=== PATIENT | male | born 1985 | race Caucasian/White ===

== ENCOUNTER 2017-01-10 21:56 | Emergency (ER) | payer SELFPAY ==
[~2017-01-10] VITALS: Ht 182.9 cm; Wt 111.1 kg
[~2017-01-10 21:56] MED LIST: ALBU17AE23 INH; ALBU8.5H2 IH; DOXY100C2 PO; OSLT75C PO; PRD20T PO
[2017-01-10] MEDS ORDERED: RX-ALBUTEROL INHALER (PROAIR) 8 GM IH PRN (22:15)
[2017-01-10] MEDS ORDERED: predniSONE 20 MG TAB PO ONE (22:15)
[2017-01-10] MEDS ORDERED: RT-ALBUTEROL SULF 2.5 MG/3 ML PRE-MIX VIAL INH STA (22:15)
--- NOTE | 2017-01-10 22:29 | ED Respiratory ---
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 NO OTHER C/O VOICED Source: patient Exam Limitations: no limitations History of Present Illness Time seen by provider: 22:10 Initial Comments Here with report of asthma attack this afternoon. States that he had gone out last night and smoked a few cigarettes and he thinks this may have exacerbated his asthma. EMS notes a fever. They did give albuterol and Atrovent which did help but he is not at baseline. Was on steroids a few weeks ago. Also noted to have hypertension and states he has been off his meds for about 3 months[address] seen at [facility]. Timing/Duration: this afternoon Severity: moderate Prior Episodes/Possible Cause: occasional episodes Modifying Factors: Improves With Albuterol Nebulizer, Improves With Rest Associated Symptoms: cough, fever/chills, shortness of breath, wheezing Allergies and Home Medications Allergies Coded Allergies: No Known Drug Allergies (Unverified , 02/18/10) Home Medications Albuterol 8.5 Gm Hfa.aer.ad, 90 MCG IH, (Reported) 2 PUFFS Q4-6H Doxycycline Hyclate 100 Mg Capsule, 1 EACH PO BID for 18 Days, (Reported) START 09/07/12 TAKE FOR 9 DAYS Oseltamivir Phosphate 75 Mg Cap, 75 MG PO BID for 9 Days, (Reported) TAKE FIRST DOSE TONIGHT Prednisone 20 Mg Tab, 40 MG PO DAILY for 4 Days, (Reported) START 09/08/12 END 09/11/12 Constitutional: see HPI, No chills, fever EENTM: no symptoms reported Respiratory: see HPI, cough, short of breath, wheezing Cardiovascular: see HPI, No chest pain, No edema Gastrointestinal: no symptoms reported Genitourinary: no symptoms reported Musculoskeletal: no symptoms reported Skin: no symptoms reported Past Nligztw-Jkzfym-Iryrwq Hx Patient Social History Alcohol Use: Occasionally Uses Recreational Drug Use: No Smoking Status: Current Someday Smoker Type Used: Cigarettes 2nd Hand Smoke Exposure: Yes Recent Foreign Travel: No Contact w/Someone Who Travel: No Recent Infectious Disease Expo: No Immunizations Up To Date Tetanus Booster (TDap): Unknown Surgeries HX Surgeries: No Respiratory Hx Respiratory Disorders: No (has been wheezing for month when excercises) Respiratory Disorders: Asthma Cardiovascular Hx Cardiac Disorders: No Cardiac Disorders: Hypertension Neurological Hx Neurological Disorders: No Reproductive System Hx Reproductive Disorders: No Sexually Transmitted Disease: No Genitourinary Hx Genitourinary Disorders: No Gastrointestinal Hx Gastrointestinal Disorders: No Musculoskeletal Hx Musculoskeletal Disorders: No Endocrine Hx Endocrine Disorders: No HEENT HX ENT Disorders: No Cancer Hx Cancer: No Psychosocial Hx Psychiatric Problems: No Integumentary HX Skin/Integumentary Disorder: No Blood Transfusions Hx Blood Disorders: No Adverse Reaction to a Blood Tr: No Reviewed Nursing Assessment Reviewed/Agree w Nursing PMH: Yes Physical Exam Vital Signs Vital Sign - Last 12Hours 01/10/17 22:07 Temp 99.5 Pulse 114 Resp 24 B/P (MAP) 185/136 Pulse Ox 95 O2 Delivery Room Air Capillary Refill : Less Than 3 Seconds General Appearance: WD/WN, no apparent distress HEENT: PERRL/EOMI, other (moderate bilateral nasal congestion with clear rhinorrhea and moderate erythema of the mucous membranes.) Neck: full range of motion, supple Respiratory: no accessory muscle use, wheezing, expiration Cardiovascular: no murmur, tachycardia Gastrointestinal: non tender, soft Neurologic/Psychiatric: alert, oriented x 3 Skin: normal color, warm/dry Progress/Results/Core Measures Results/Orders My Orders Orders - LORENZA BARDALES MD Chest Pa/Lat (2 View) (01/10/17 22:15) Albuterol Pre-Mix Nebs (Rt) (Proventil P (01/10/17 22:15) Svn Sm Volume Nebulizer Rt-Rfs (01/10/17 22:15) Prednisone Tablet (Deltasone Tablet) (01/10/17 22:15) Rx-Albuterol Inhaler (Rx-Proair) (01/10/17 22:15) Lisinopril Tablet (Zestril Tablet) (01/10/17 22:30) Medications Given in ED Current Medications Medications Dose Ordered Sig/Catherine Route Start Time Stop Time Status Last Admin Dose Admin Lisinopril 20 mg ONCE ONCE PO 01/10/17 22:30 01/10/17 22:31 DC 01/10/17 22:35 20 MG Prednisone 40 mg ONCE ONCE PO 01/10/17 22:15 01/10/17 22:18 DC 01/10/17 22:23 40 MG Vital Signs/I&O Vital Sign - Last 12Hours 01/10/17 01/10/17 22:07 22:21 Temp 99.5 Pulse 114 Resp 24 B/P (MAP) 185/136 Pulse Ox 95 94 O2 Delivery Room Air Room Air Blood Pressure Mean: 152 Progress Note : Progress Note Seen and evaluated. Albuterol nebulizer treatment 3. Prednisone 40 mg by mouth. Chest x-ray ordered due to the low-grade temperature noted. Monitor patient. 2305: Much improved. Discharged home with return precautions. Patient verbalize understanding instructions and agreement with plan. Lisinopril 20 mg by mouth given. Departure Impression Impression: Primary Impression: Acute asthma exacerbation Qualified Codes: J45.31 - Mild persistent asthma with (acute) exacerbation Additional Impression: Hypertension Qualified Codes: I10 - Essential (primary) hypertension Disposition: HOME, SELF-CARE Condition: Improved Departure-Patient Inst. Decision time for Depature: 23:14 Referrals: NO,LOCAL PHYSICIAN (PCP/Family) Primary Care Physician Patient Instructions: Asthma, Adult (DC), High Blood Pressure (DC) Add. Discharge Instructions: All discharge instructions reviewed with patient and/or family. Voiced understanding. Take medications as directed. Keep appointment on Thursday as scheduled. Return for worse pain, fever, vomiting, weakness, breathing problems or other concerns as needed. Discussed with your doctor related to your high blood pressure. Scripts Lisinopril (Lisinopril) 20 Mg Tablet 20 MG PO DAILY for 30 Days, #30 TAB Prov: LORENZA BARDALES MD 01/10/17 Prednisone (Prednisone) 20 Mg Tab 40 MG PO DAILY, #8 TAB 0 Refills Prov: LORENZA BARDALES MD 01/10/17 LORENZA BARDALES MD Jan 10, 2017 22:29
[2017-01-10] MEDS ORDERED: lisINopril 20 MG (ZESTRIL) TAB PO ONE (22:30)
[2017-01-10] MEDS ORDERED: LISI-552 PO (23:16)
[2017-01-10] MEDS ORDERED: PRD20T PO (23:16)
[2017-01-10 23:23] VITALS: BP 188/127
--- NOTE | 2017-01-11 09:39 | Diagnostic Imaging Report ---
INDICATION: Asthma. Comparison is made with prior examination from 09/06/12. FINDINGS: The heart size, mediastinal configuration, and pulmonary vascularity are within normal limits. There is no pleural effusion, pneumothorax, or pneumonia. The osseous structures are unremarkable. IMPRESSION: No acute cardiopulmonary abnormality. Dictated by: Dictated on workstation # [id number]
== END 2017-01-10 23:23 | disposition home or self-care (01) ==
LOC: EDUNIT# 21:56 → ER 22:07
DX: J45.901 Unspecified asthma with (acute) exacerbation (principal); I10 Essential (primary) hypertension; F17.210 Nicotine dependence, cigarettes, uncomplicated
CPT/HCPCS: 71020; 94640; 99283

== ENCOUNTER 2020-01-09 05:04 | Emergency (ER) | payer SELFPAY ==
[~2020-01-09] VITALS: Ht 185 cm; Wt 122.0 kg
[~2020-01-09 05:04] MED LIST changes: +LISI-552 PO
--- OUTSIDE RECORDS SUMMARY | 2020-01-09 05:10 | XMS REPORT | Continuity of Care Document ---
Author Organization Unknown Address Unknown Phone Unavailable Allergies Active Description Code Type Severity Reaction Onset Reported/Identified Relationship to Patient Clinical Status Yes No Known Drug Allergies [id number] Drug Allergy Unknown N/A 02/18/2010 Medications There is no data. 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 Results There is no data. Encounters ACCT No. Visit Date/Time Discharge Status Pt. Type Provider Facility Loc./Unit Complaint [id number] 01/10/2017 22:07:00 017 23:23:00 DIS Emergency CATIA EVANS, LORENZA Bundy [facility] ER ASTHMA [id number] 09/06/2012 04:59:00 Document Registration
--- OUTSIDE RECORDS SUMMARY | 2020-01-09 05:10 | XMS REPORT ---
Author Author [id number] Crit[facility] Live Address [address] [address] Care Team Providers Care Cash Surrender Calculator Name Role Phone AYALA, [facility] Unavailable CATIA EVANS, LORENZA Bundy Unavailable Unavailable STANLEY DO, MIKE K Unavailable Unavailable STANLEY DO, MIKE K Unavailable Unavailable Unavailable Unavailable Allergies Normalized Allergy Reported Date of Reaction(s) Care Provider Facility Allergy Type classification allergen Allergy Onset DA (2 Unclassified No Known Drug 02-18-2010 - no information MIKE STANLEY , Not Available sources.) Allergies DO (46531) Medications No Information Problems Active Problems Problem Normalized Date Last Normalized Normalized Provider Fa cility Classification Problem(s) Recorded Problem Problem Sta tus Duration Substance-rela Tobacco use Chronic Active MIKE STANLEY , No t Available karishma disorders disorder DO (05886) (1 source.) Past or Other Problems Problem Normalized Date Last Normalized Normalized Provider Fa cility Classification Problem(s) Recorded Problem Problem Sta tus Duration Acute Acute Episodic Completed MIKE STANLEY , Not Availa ble bronchitis (1 bronchitis DO (44567) source.) Influenza (1 Influenza with Episodic Completed MIKE STANLEY , N ot Available source.) other DO (78597) respiratory manifestations Other diseases Unspecified Episodic Completed MIKE STANLEY , No t Available of kidney and disorder of DO (11209) ureters (1 kidney and source.) ureter Procedures No Information Immunizations No Information Results No Information Vital Signs The data below is from unstructured sources Vital Response Date/Time Temperature (Fahrenheit) 99.5 degree s F (97.6 - 99.5) 01/10/2017 10:07pm Temperature (Calculated Celsius) 37. 40492 degrees C (36.4 - 37.5) 01/10/2017 10:07pm Temperature Source Tympanic 01/10/2017 10:07pm Pulse Rate (adult) 108 bpm (60 - 90) 01/10/2017 11:23pm Respiratory Rate 20 bpm (12 - 24) 01/10/2017 11:23pm O2 Sat by Pulse Oximetry 99 % (88 - 100) 01/10/2017 11:23pm Blood Pressure 188/127 mm Hg 01/10/2017 11:23pm Blood Pressure Mean 152 mm Hg 01/10/2017 10:07pm Pain Numeric Pain Scale 0-No Pain 01/10/2017 11:23pm Height (Feet) 6 feet 05/2017 10:07pm Height (Calculated Centimeters) 182. 259465 cm 01/10/2017 10:07pm Weight (Pounds) 245 pounds 01/10/2017 10:07pm Weight (Calculated Kilograms) 111.13 0132 kilograms 01/10/2017 10:07pm Capillary Refill Capillary Refill Less Than 3 Seconds 01/10/2017 10:07pm Height 6 ft 0 in 017 10:07pm Weight 245 lb 01/10/2017 10:07pm Body Mass Index 33.2 kg/m^2 01/10/2017 10:07pm Interventions No Information Plan of Treatment The data below is from unstructured sources Discharge Date 01/10/17 11:23pm Disposition 01 HOME, SELF-CARE Condition at Discharge Improved Instructions/Education Provided Asth ma, Adult (DC) High Blood Pressure (DC) Prescriptions See Medication Section Referrals NO,LOCAL PHYSICIAN Order Date: Primary Care Physician Additional Instructions/Education Al l discharge instructions reviewed with patient and/or family. Voiced understanding. Take medications as directed. Keep appointment on Thursday as scheduled. Return for worse pain, fever, vomiting, weakness, breathing problems or other concerns as needed. Discussed with your doctor related to your high blood pressure. Goals No Information Social History No Information Functional Status The data below is from unstructured sourcesNo functional status information available. Mental Status No Information Encounters Encounter Normalized Encounter Encounter Diagnosis Care Provi cash Organization Date Type 09-06-2012 Evaluation and no information no name no organ ization name - management of 09-07-2012 inpatient Medical Equipment No Information Payers No Information Advance Directives Directive Response Recor ded Date/Time Advance Directives No 10:07pm Health Care Power of Aviation Maintenance Instructor No 01/10/17 10:07pm Organ Donor Yes 01/10/17 10:07pm Resuscitation Status Full Code 01/10/17 10:07pm Discharge Instructions No hospital discharge instruction information available. Additional Source Comments This clinical document has been generated using [employer] software that has been certified by the Office of the National Coordinator for Health Information Technology (ONC 15.99.04.3023.Diam.31.00.0.789825) and the National Committee for Floor Coverings Installer (NCQA, as an eMeasure certified technology). FOR RECORDS PERTAINING TO PATIENTS WHO ARE OR HAVE BEEN ENROLLED IN A CHEMICAL D EPENDENCY/SUBSTANCE ABUSE PROGRAM, SOME INFORMATION MAY BE OMITTED. This clinica l summary was aggregated from multiple sources. Caution should be exercised in using it in the provision of clinical care. This summary normalizes information from multiple sources, and as a consequence, information in this document may ma terially change the coding, format and clinical context of patient data. In moshe tion, data may be omitted in some cases. CLINICAL DECISIONS SHOULD BE BASED ON T HE PRIMARY CLINICAL RECORDS. [employer] provides no warranty or guara ntee of the accuracy or completeness of information in this document.The followi ng information is based on time limited clinical information
[2020-01-09] MEDS ORDERED: methylPREDNISolone 125 MG (Solu-MEDROL) VIAL IV STA (05:11)
[2020-01-09] MEDS ORDERED: RT-ALBUTEROL SULF 2.5 MG/3 ML PRE-MIX VIAL INH STA (05:11)
[2020-01-09] MEDS ORDERED: RT-ALBUTEROL/IPRATROPIUM 3 ML (DUONEB) VIAL INH ONE (05:15)
[2020-01-09] MEDS ORDERED: RT-IPRATROPIUM (ATROVENT) 0.5MG/2.5ML AMP IH ONE (05:16)
[2020-01-09 05:21] LABS: ABG BASE EXCESS -4.2 MMOL/L (-2.5-2.5); ABG OXYGEN SATURATION 90 % (94-100); ABG PCO2 41 MMHG (35-45); ABG PH 7.33 (7.37-7.43); ABG PO2 64 MMHG (79-93); ABG TCO2 22.1 MMOL/L (21.0-31.0)
[2020-01-09 05:21] LABS: BASOPHILS % (AUTO) 0 % (0-10); EOSINOPHILS # (AUTO) 0.2 10^3/uL (0.0-0.3); EOSINOPHILS % (AUTO) 2 % (0-10); HEMATOCRIT 42 % (40-54); HEMOGLOBIN 14.7 G/DL (13.3-17.7); LYMPHOCYTES # (AUTO) 1.9 X 10^3 (1.0-4.0); LYMPHOCYTES % (AUTO) 17 % (12-44); MEAN CORPUSCULAR HEMOGLOBIN 31 PG (25-34); MEAN CORPUSCULAR HGB CONC 35 G/DL (32-36); MEAN CORPUSCULAR VOLUME 90 FL (80-99); MEAN PLATELET VOLUME 9.5 FL (7.4-10.4); MONOCYTES # (AUTO) 0.6 X 10^3 (0.0-1.0); MONOCYTES % (AUTO) 5 % (0-12); NEUTROPHILS # (AUTO) 8.9 X 10^3 (1.8-7.8); NEUTROPHILS % (AUTO) 77 % (42-75); PLATELET COUNT 222 10^3/uL (130-400); RED CELL DISTRIBUTION WIDTH 13.2 % (10.0-14.5); WHITE BLOOD COUNT 11.6 10^3/uL (4.3-11.0)
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
[2020-01-09 05:22] LABS: ALLENS TEST POSITIVE; INSPIRED O2 RA; PATIENT TEMP 36.7; VENTILATOR NO
[2020-01-09 05:28] LABS: ALBUMIN 4.2 GM/DL (3.2-4.5); CHLORIDE 102 MMOL/L (98-107)
[2020-01-09 05:29] LABS: POTASSIUM 4.2 MMOL/L (3.6-5.0); SODIUM 136 MMOL/L (135-145)
[2020-01-09 05:30] LABS: CALCIUM 8.2 MG/DL (8.5-10.1)
[2020-01-09 05:31] LABS: GLUCOSE 125 MG/DL (70-105)
[2020-01-09 05:32] LABS: CARBON DIOXIDE 22 MMOL/L (21-32)
[2020-01-09 05:33] LABS: BILIRUBIN,TOTAL 0.7 MG/DL (0.1-1.0)
[2020-01-09 05:34] LABS: ALKALINE PHOSPHATASE 85 U/L (40-136)
[2020-01-09 05:35] LABS: CREATININE SERUM 0.99 MG/DL (0.60-1.30); GFR ESTIMATED > 60
[2020-01-09 05:36] LABS: BUN/CREATININE RATIO 10
[2020-01-09 05:37] LABS: ALANINE AMINOTRANSFERASE 42 U/L (0-55)
--- NOTE | 2020-01-09 05:54 | Diagnostic Imaging Report ---
INDICATION: Shortness of breath. Comparison made with prior examination 01/10/2017. FINDINGS: The heart size, mediastinal configuration, and pulmonary vascularity are within normal limits. There is no pleural effusion, pneumothorax, or pneumonia. The osseous structures are unremarkable. IMPRESSION: No acute cardiopulmonary abnormality. Dictated by: Dictated on workstation # [id number]
[2020-01-09] MEDS ORDERED: PRD20T PO (06:02)
[2020-01-09 06:05] VITALS: BP 103/79
== END 2020-01-09 06:30 | disposition home or self-care (01) ==
LOC: EDUNIT# 05:04 → ER 05:06
DX: J45.901 Unspecified asthma with (acute) exacerbation (principal); F10.10 Alcohol abuse, uncomplicated; I10 Essential (primary) hypertension; F17.210 Nicotine dependence, cigarettes, uncomplicated; Z91.14 Patient's other noncompliance with medication regimen; Z79.52 Long term (current) use of systemic steroids
CPT/HCPCS: 36415; 71045; 80053; 82805; 85025; 86141; 94640; 94644; 94760